=== PATIENT | female | born 1970 | race Caucasian/White ===

== ENCOUNTER 2016-12-17 06:40 | Day surgery (SDC) | payer BC ==
[2016-12-16 17:18] LABS: BASOPHILS 0.2 %; BASOPHILS ABSOLUTE 0.02 10/3/uL (0.0-0.16); EOSINOPHILS 1.3 %; EOSINOPHILS ABSOLUTE 0.12 10/3/uL (0.0-0.53); HEMOGLOBIN 14.7 g/dL (12.0-16.0); IMMATURE GRANULOCYTES 0.2 %; IMMATURE GRANULOCYTES ABSOLUTE 0.02 10/3/uL (0.0-0.11); LYMPHOCYTES 31.8 %; LYMPHOCYTES ABSOLUTE 2.95 10/3/uL (0.67-4.30); MEAN CORPUS HGB CONC 33.7 g/dL (32.0-36.0); MEAN CORPUSCULAR HEMOGLOB 29.5 pg (26.0-34.0); MEAN CORPUSCULAR VOLUME 87.4 fL (80-100); MEAN PLATELET VOLUME 9.5 fL (9.2-13.0); MONOCYTES 6.4 %; MONOCYTES ABSOLUTE 0.59 10/3/uL (0.21-1.20); NEUTROPHILS 60.1 %; NEUTROPHILS ABSOLUTE 5.59 10/3/uL (2.02-8.40); PLATELET COUNT 252 10/3/uL (150-400); RBC DISTRIBUTION WIDTH 12.2 % (12.0-16.0); RED CELL COUNT 4.99 10/6/uL (4.0-5.6); WHITE BLOOD CELLS 9.3 10/3/uL (4.5-10.5)
[2016-12-16 17:21] LABS: HEMATOCRIT 43.6 % (36.0-48.0)
[2016-12-16 17:37] LABS: CALCIUM, SERUM 8.5 MG/DL (8.5-10.4); CHLORIDE, SERUM 103 MMOL/L (96-112); CO2 (CARBON DIOXIDE) 30 MMOL/L (24-34); CREATININE 0.89 MG/DL (0.55-1.02); GFR AFRICAN AMERICAN 89 ML/MIN (>=60); GFR NON AFRICAN AMERICAN 77 ML/MIN (>=60); GLUCOSE, SERUM 89 MG/DL (60-99); POTASSIUM, SERUM 3.8 MMOL/L (3.5-5.3); SODIUM, SERUM 139 MMOL/L (135-148)
[2016-12-16 17:42] LABS: BUN (BLOOD UREA NITROGEN) 11 MG/DL (6-23)
[2016-12-16 18:37] LABS: ASCORBIC ACID (UR NOT ORDER) NEG (NEG); BILIRUBIN, URINE NEGATIVE (NEG); KETONE, URINE NEGATIVE (NEG); LEUKOCYTE ESTERASE(NOT OR TRACE (NEG); WBC (NOT ORDERED) (RFLEX) 12 (0-5)
--- NOTE | ~2016-12-17 | OP ---
Record Of Operation [facility] [address] [place]. [address] NAME: MIRLANDE LEE : 68 [place] [facility] [place] [id number] AGE: 46 ADM/REG DATE : 12/17/16 MR#: [id number] REPORT SERV DATE: 12/17/16 DICTATED BY: Kaela TONG DATE: 12/17/16 REPORT STATUS : Draft TRANSCRIBED BY: MARQUISL DATE: 12/17/16 DATE OF PROCEDURE: 12/17/2016 PREOPERATIVE DIAGNOSIS: Left mid ureteral stone. POSTOPERATIVE DIAGNOSIS: Left mid ureteral stone. PROCEDURE: Left ESWL. SURGEON: Kaela Tong M.D. ANESTHESIA: MAC. COMPLICATIONS: None. DRAINS: None. BRIEF HISTORY: Ms. Lee is a 46-year-old white female, known to me with a history of stone disease, who presented recently with a 6 mm left proximal ureteral stone. I saw her in the office, the stone had moved to the mid sacral area, and we decided to proceed with ESWL. The risks of bleeding, infection, anesthesia, injury to adjacent organs, need for retreatment, endoscopy, etc., were all discussed with no unanswered questions. DESCRIPTION OF PROCEDURE: Preoperative KUB showed the stone had moved further down the sacrum and was visible just at the pelvic inlet. An anterior approach was used using the [employer]ornier Compact Delta II machine, and the stone was localized at F2. A total of 3000 shocks at a power level up to 5 and a rate up to 120 were used. A good treatment was achieved, and the patient tolerated it well. She is going to be discharged as an outpatient with the following instructions. DISCHARGE INSTRUCTIONS: 1. Home today. 2. Continue Flomax as prescribed. 3. Strain all urine. 4. Percocet 5/325 one to two p.o. q.4 hours p.r.n. pain, #20. 5. Follow up in my office in one to two weeks with a KUB and any collected fragments. DAWOOD/MO Kaela Tong M.D. / [id number] Record Of Operation [place] [address] [facility] [place]. [address] NAME: MIRLANDE LEE : 68 [place] [facility] [place] [id number] AGE: 46 ADM/REG DATE : 12/17/16 MR#: [id number] REPORT SERV DATE: 12/17/16 DICTATED BY: Kaela TONG DATE: 12/17/16 REPORT STATUS : Draft TRANSCRIBED BY: MARQUISL DATE: 12/17/16 CC: Hailey Ross Heather
[~2016-12-17 06:40] MED LIST: ASAB PO; CEFT2 PO; CELEXA20 PO; ESTROGEN/TESTOSTERON IJ; FLOMAX4 PO; GLUCPH PO; PCET PO; PRIN10 PO; PRIN5 PO; PROZAC PO
== END 2016-12-17 12:21 | disposition home or self-care (01) ==
LOC: SDC 06:40
PROC: 0TF7XZZ Fragmentation in Left Ureter, External Approach (ICD-10-PCS; principal; 2016-12-17 09:00)
DX: N20.1 Calculus of ureter (principal); Z86.73 Personal history of transient ischemic attack (TIA), and cerebral infarction without residual deficits; I10 Essential (primary) hypertension; R73.03 Prediabetes; Z79.84 Long term (current) use of oral hypoglycemic drugs; Z79.899 Other long term (current) drug therapy; Z90.49 Acquired absence of other specified parts of digestive tract; Z90.710 Acquired absence of both cervix and uterus; Z87.442 Personal history of urinary calculi; Z98.890 Other specified postprocedural states
CPT/HCPCS: 50590; 74000; 80048; 81001; 82962; 85025; 93005; J2250; J3010